=== PATIENT | male | born 1940 | race Caucasian/White ===

== ENCOUNTER 2018-09-13 07:50 | Inpatient (IN) | payer MEDICARE, OTHER ==
[~2018-09-13] VITALS: Ht 167.6 cm; Wt 114.9 kg
[~2018-09-13 07:50] MED LIST: AMIO200T44 PO; ASPI81 PO; ATOR-2 PO; CARV6.2534 PO; CHL25 PO; CLOP75TA3 PO; ISOS30TA6 PO; LEVO25TA9 PO; PARO-37 PO; SLOWK8 PO; SPIR50 PO; TAMS0.4C32 PO
[2018-09-13] MEDS ORDERED: INHALER IH (08:06)
[2018-09-13] MEDS ORDERED: PERTUSS(ACELL),DIPH,TET VAC/PF 0.5 ML VIAL IM ONE (08:30)
[2018-09-13] MEDS ORDERED: BACITRACIN 0.9 GM PACKET OINTMENT TP ONE (08:30)
[2018-09-13] MEDS ORDERED: FUROSEMIDE 40 MG/4 ML VIAL IVP ONE (08:30)
[2018-09-13] MEDS ORDERED: IPRATROPIUM BROMIDE 0.5 MG/2.5 ML NEB SOLUTION NEB ONE (08:30)
[2018-09-13] MEDS ORDERED: ASPIRIN 325 MG TABLET PO ONE (08:30)
[2018-09-13] MEDS ORDERED: CefTRIAXone 1 GM/DEXTROSE 50 ML IV ONE (08:30)
[2018-09-13] MEDS ORDERED: ALBUTEROL SULFATE 2.5 MG/0.5 ML NEB SOLUTION NEB ONE (08:30)
[2018-09-13 08:50] LABS: BASOPHILS % (AUTO) 0.3 % (0.0-2.0); EOSINOPHILS % (AUTO) 1.7 % (1.0-6.0); HEMATOCRIT 48.1 % (41-53); HEMOGLOBIN 15.8 g/dL (13.5-17.5); LYMPHOCYTES # (AUTO) 0.6 K/uL (1.0-4.8); LYMPHOCYTES % (AUTO) 9.6 % (22.0-44.0); MEAN CORPUSCULAR HEMOGLOBIN 32.5 pg (26.0-34.0); MEAN CORPUSCULAR HGB CONC 32.9 G/dL (31.0-37.0); MEAN CORPUSCULAR VOLUME 99 fL (80-100); MONOCYTES % (AUTO) 15.3 % (2.0-9.0); NEUTROPHILS # (AUTO) 4.5 K/uL (1.8-7.7); NEUTROPHILS % (AUTO) 73.1 % (40.0-70.0); PLATELET COUNT (AUTO) 22 K/uL (150-450); RED BLOOD CELL COUNT(AUTO) 4.86 MIL/uL (4.50-5.90); RED CELL DISTRIBUTION WIDTH 12.8 % (11.5-14.5)
[2018-09-13 09:04] LABS: ANION GAP 2 mmol/L (8-16); CALCIUM, TOTAL 9.1 mg/dL (8.8-10.5); CARBON DIOXIDE 35 mmol/L (22-29); CHLORIDE 101 mmol/L (98-107); CREATININE 0.98 mg/dL (0.60-1.30); GLUCOSE,RANDOM 116 mg/dL (70-110); POTASSIUM 3.8 mmol/L (3.5-5.1); SODIUM SERUM 138 mmol/L (136-145); UREA NITROGEN, BLOOD 15 mg/dL (7-18)
[2018-09-13 09:05] LABS: GLOMERULAR FILTR. RATE CALC > 60 mL/min (>60)
[2018-09-13] MEDS: OXYGEN THERAPY IH SCH ×2 (09:05→20:30)
[2018-09-13 09:10] LABS: ALANINE AMINOTRANSFERASE 19 U/L (12-78); ALBUMIN 3.1 g/dL (3.4-5.0); ALKALINE PHOSPHATASE 73 U/L (46-116); ASPARTATE AMINOTRANSFERASE 22 U/L (15-37); BILIRUBIN,TOTAL 0.6 mg/dL (0.1-1.0); TOTAL PROTEIN, SERUM 6.7 g/dL (6.4-8.2)
[2018-09-13 09:12] LABS: LACTIC ACID 0.6 mmol/L (0.4-2.0)
[2018-09-13 09:13] LABS: B-TYPE NATRIURETIC PEPTIDE 103 pg/mL (0-100)
[2018-09-13 09:38] LABS: APPEARANCE,URINE CLEAR (CLEAR); BILIRUBIN,URINE NEGATIVE (NEGATIVE); GLUCOSE, URINE (UA) NEGATIVE (NEGATIVE); KETONES,URINE NEGATIVE (NEGATIVE); LEUKOCYTE ESTERASE ,URINE TRACE (NEGATIVE); NITRATE,URINE NEGATIVE (NEGATIVE); OCCULT BLOOD,URINE TRACE (NEGATIVE); PH,URINE 6.5 (5.0-8.0); PROTEIN,URINE NEGATIVE (NEGATIVE)
[2018-09-13 09:45] LABS: BACTERIA,URINE Rare /HPF (None Seen); SQUAMOUS EPITHELIAL CELL,UR Rare /LPF (None Seen)
[2018-09-13] MEDS ORDERED: ACETAMINOPHEN 325 MG TABLET PO PRN (10:00)
[2018-09-13] MEDS ORDERED: ALBUTEROL SULFATE 2.5 MG/0.5 ML NEB SOLUTION NEB PRN (10:00)
[2018-09-13] MEDS ORDERED: MAGNESIUM HYDROXIDE SUSPENSION 30 ML UDCUP PO PRN (10:00)
[2018-09-13 10:35] LABS: INFLUENZA TYPE A NEGATIVE FOR TYPE A (NEGATIVE); INFLUENZA TYPE B NEGATIVE FOR TYPE B (NEGATIVE)
[2018-09-13 13:45] VITALS: BP 115/51
[2018-09-13] MEDS: IPRATROPIUM BROMIDE 0.5 MG/2.5 ML NEB SOLUTION NEB SCH ×2 (15:00→23:50)
[2018-09-13] MEDS: ALBUTEROL SULFATE 2.5 MG/0.5 ML NEB SOLUTION NEB SCH ×2 (15:00→23:51)
[2018-09-13 15:36] LABS: ABG BASE EXCESS 9.5 mmol/L (-2.0-3.0); ABG CARBOXYHEMOGLOBIN 0.7 % (0.0-1.5); ABG HCO3 31.1 mmol/L (22.0-26.0); ABG METHEMOGLOBIN 0.1 % (0.0-1.5); ABG OXYGEN CONTENT 22.4 mL/dL (15.0-23.0); ABG OXYGEN SATURATION 95.1 % (95.0-98.0); ABG OXYHEMOGLOBIN 94.3 % (94.0-100.0); ABG PCO2 56 mmHg (35-45); ABG PH 7.404 (7.35-7.450); ABG TOTAL HEMOGLOBIN 16.9 G/dL (12.0-18.0); PO2, ARTERIAL BG 73.6 mmHg (75.0-83.0); SOURCE, BLOOD GAS ARTERIAL; TEMPERATURE, FAHRENHEIT, BG 98.6 FAHREN (96.0-98.6)
[2018-09-13 15:37] LABS: O2 DEVICE,BLOOD GAS CANNULA (ROOM AIR); SITE, BLOOD GAS LFT RADIAL
[2018-09-13] MEDS ORDERED: HEPARIN SODIUM,PORCINE 5,000 UNITS/ML VIAL SQ SCH (16:00)
[2018-09-13] MEDS: HEPARIN SODIUM,PORCINE 5,000 UNITS/ML VIAL SQ SCH ×2 (16:22→20:30)
[2018-09-13 20:15] VITALS: BP 120/71
[2018-09-13] MEDS: ATORVASTATIN CALCIUM 20 MG TABLET PO SCH (20:30)
[2018-09-13] MEDS: DOCUSATE SODIUM 100 MG CAPSULE PO SCH (20:30)
[2018-09-13] MEDS: CARVEDILOL 6.25 MG TABLET PO SCH (20:30)
[2018-09-14 00:08] VITALS: BP 111/71
[2018-09-14] MEDS: IPRATROPIUM BROMIDE 0.5 MG/2.5 ML NEB SOLUTION NEB SCH ×6 (02:59→22:42)
[2018-09-14] MEDS: ALBUTEROL SULFATE 2.5 MG/0.5 ML NEB SOLUTION NEB SCH ×6 (02:59→22:42)
[2018-09-14 06:08] VITALS: BP 128/76
[2018-09-14 07:43] LABS: ANION GAP 6 mmol/L (8-16); CALCIUM, TOTAL 9.4 mg/dL (8.8-10.5); CARBON DIOXIDE 32 mmol/L (22-29); CHLORIDE 96 mmol/L (98-107); CREATININE 1.08 mg/dL (0.60-1.30); GLUCOSE,RANDOM 88 mg/dL (70-110); POTASSIUM 3.9 mmol/L (3.5-5.1); SODIUM SERUM 134 mmol/L (136-145); UREA NITROGEN, BLOOD 20 mg/dL (7-18)
[2018-09-14 07:44] LABS: GLOMERULAR FILTR. RATE CALC > 60 mL/min (>60)
[2018-09-14] MEDS: OXYGEN THERAPY IH SCH ×2 (08:14→21:03)
[2018-09-14] MEDS: FUROSEMIDE 20 MG/2 ML VIAL IVP SCH (08:15)
[2018-09-14] MEDS: ASPIRIN 81 MG CHEWABLE TABLET PO SCH ×2 (08:15→08:21)
[2018-09-14] MEDS: CLOPIDOGREL BISULFATE 75 MG TABLET PO SCH ×2 (08:15→08:21)
[2018-09-14] MEDS: DOCUSATE SODIUM 100 MG CAPSULE PO SCH ×2 (08:15→21:03)
[2018-09-14] MEDS: CARVEDILOL 6.25 MG TABLET PO SCH ×2 (08:15→21:03)
[2018-09-14] MEDS: HEPARIN SODIUM,PORCINE 5,000 UNITS/ML VIAL SQ SCH (08:16)
[2018-09-14] MEDS ORDERED: FAMOTIDINE 20 MG TABLET PO SCH (09:00)
[2018-09-14 09:32] LABS: BASOPHILS % (AUTO) 0.2 % (0.0-2.0); EOSINOPHILS % (AUTO) 0.4 % (1.0-6.0); HEMATOCRIT 50.4 % (41-53); HEMOGLOBIN 16.5 g/dL (13.5-17.5); LYMPHOCYTES # (AUTO) 0.8 K/uL (1.0-4.8); MEAN CORPUSCULAR HEMOGLOBIN 32.5 pg (26.0-34.0); MEAN CORPUSCULAR HGB CONC 32.9 G/dL (31.0-37.0); MEAN CORPUSCULAR VOLUME 99 fL (80-100); MONOCYTES # (AUTO) 1.1 K/uL (0.1-1.0); MONOCYTES % (AUTO) 17.8 % (2.0-9.0); NEUTROPHILS # (AUTO) 4.4 K/uL (1.8-7.7); NEUTROPHILS % (AUTO) 68.6 % (40.0-70.0); RED CELL DISTRIBUTION WIDTH 13.1 % (11.5-14.5)
[2018-09-14 09:42] LABS: PLATELET COUNT (AUTO) 15 K/uL (150-450)
[2018-09-14 09:52] VITALS: BP 122/72
[2018-09-14] MEDS: PredniSONE 20 MG TABLET PO SCH (12:19)
[2018-09-14 12:21] VITALS: BP 120/63
[2018-09-14 16:17] VITALS: BP 117/58
[2018-09-14] MEDS ORDERED: BENZOCAINE/MENTHOL LOZENGE PO PRN (17:45)
[2018-09-14] MEDS ORDERED: GuaiFENesin/CODEINE [SUGAR FREE] 200-20MG/10 ML SYRUP UDCUP PO PRN (17:45)
[2018-09-14 20:33] VITALS: BP 119/62
[2018-09-14] MEDS: ATORVASTATIN CALCIUM 20 MG TABLET PO SCH (21:03)
[2018-09-15] VITALS (7 sets, daily range): BP systolic 107–126; BP diastolic 55–66
[2018-09-15] MEDS: BENZONATATE 100 MG CAPSULE PO SCH ×4 (00:10→23:29)
[2018-09-15] MEDS: ALBUTEROL SULFATE 2.5 MG/0.5 ML NEB SOLUTION NEB SCH ×6 (02:52→22:51)
[2018-09-15] MEDS: IPRATROPIUM BROMIDE 0.5 MG/2.5 ML NEB SOLUTION NEB SCH ×6 (02:52→22:51)
[2018-09-15 05:44] LABS: BASOPHILS % (AUTO) 0.1 % (0.0-2.0); EOSINOPHILS % (AUTO) 0 % (1.0-6.0); HEMOGLOBIN 16.4 g/dL (13.5-17.5); LYMPHOCYTES # (AUTO) 0.7 K/uL (1.0-4.8); LYMPHOCYTES % (AUTO) 11.8 % (22.0-44.0); MEAN CORPUSCULAR HEMOGLOBIN 32.8 pg (26.0-34.0); MEAN CORPUSCULAR HGB CONC 33.5 G/dL (31.0-37.0); MEAN CORPUSCULAR VOLUME 98 fL (80-100); MONOCYTES # (AUTO) 0.4 K/uL (0.1-1.0); MONOCYTES % (AUTO) 7.4 % (2.0-9.0); NEUTROPHILS # (AUTO) 4.6 K/uL (1.8-7.7); NEUTROPHILS % (AUTO) 80.7 % (40.0-70.0); RED BLOOD CELL COUNT(AUTO) 5.01 MIL/uL (4.50-5.90); RED CELL DISTRIBUTION WIDTH 12.9 % (11.5-14.5)
[2018-09-15 05:46] LABS: PLATELET COUNT (AUTO) 16 K/uL (150-450)
[2018-09-15 06:37] LABS: ANION GAP 6 mmol/L (8-16); CALCIUM, TOTAL 9.3 mg/dL (8.8-10.5); CARBON DIOXIDE 32 mmol/L (22-29); CHLORIDE 94 mmol/L (98-107); CREATININE 1.13 mg/dL (0.60-1.30); GLUCOSE,RANDOM 138 mg/dL (70-110); POTASSIUM 4.6 mmol/L (3.5-5.1); SODIUM SERUM 132 mmol/L (136-145); UREA NITROGEN, BLOOD 26 mg/dL (7-18)
[2018-09-15 06:38] LABS: GLOMERULAR FILTR. RATE CALC > 60 mL/min (>60)
[2018-09-15] MEDS: FUROSEMIDE 20 MG/2 ML VIAL IVP SCH (08:11)
[2018-09-15] MEDS: CARVEDILOL 6.25 MG TABLET PO SCH ×2 (08:11→20:15)
[2018-09-15] MEDS: PredniSONE 20 MG TABLET PO SCH (08:11)
[2018-09-15] MEDS: DOCUSATE SODIUM 100 MG CAPSULE PO SCH ×2 (08:11→20:15)
[2018-09-15] MEDS: OXYGEN THERAPY IH SCH ×2 (08:21→19:18)
[2018-09-15] MEDS: ATORVASTATIN CALCIUM 20 MG TABLET PO SCH (20:15)
[2018-09-16] MEDS: ALBUTEROL SULFATE 2.5 MG/0.5 ML NEB SOLUTION NEB SCH ×6 (03:07→23:04)
[2018-09-16] MEDS: IPRATROPIUM BROMIDE 0.5 MG/2.5 ML NEB SOLUTION NEB SCH ×6 (03:07→23:04)
[2018-09-16 05:43] VITALS: BP 129/74
[2018-09-16 07:48] VITALS: BP 113/58
[2018-09-16] MEDS ORDERED: DEXTROSE 50%-WATER 25 GM/50 ML SYRINGE IVP PRN (08:15)
[2018-09-16] MEDS: OXYGEN THERAPY IH SCH ×2 (09:11→20:35)
[2018-09-16] MEDS: PredniSONE 20 MG TABLET PO SCH (09:11)
[2018-09-16] MEDS: BENZONATATE 100 MG CAPSULE PO SCH ×2 (09:11→16:48)
[2018-09-16] MEDS: FUROSEMIDE 20 MG/2 ML VIAL IVP SCH (09:11)
[2018-09-16] MEDS: CARVEDILOL 6.25 MG TABLET PO SCH ×2 (09:11→21:00)
[2018-09-16] MEDS: DOCUSATE SODIUM 100 MG CAPSULE PO SCH ×2 (09:11→20:36)
[2018-09-16 09:22] LABS: BASOPHILS % (AUTO) 0.2 % (0.0-2.0); EOSINOPHILS % (AUTO) 0 % (1.0-6.0); HEMATOCRIT 48.9 % (41-53); HEMOGLOBIN 16.1 g/dL (13.5-17.5); LYMPHOCYTES # (AUTO) 1.1 K/uL (1.0-4.8); LYMPHOCYTES % (AUTO) 11.3 % (22.0-44.0); MEAN CORPUSCULAR HEMOGLOBIN 32.1 pg (26.0-34.0); MEAN CORPUSCULAR HGB CONC 32.9 G/dL (31.0-37.0); MEAN CORPUSCULAR VOLUME 98 fL (80-100); MONOCYTES # (AUTO) 0.7 K/uL (0.1-1.0); MONOCYTES % (AUTO) 7.2 % (2.0-9.0); NEUTROPHILS # (AUTO) 8.2 K/uL (1.8-7.7); NEUTROPHILS % (AUTO) 81.3 % (40.0-70.0); PLATELET COUNT (AUTO) 28 K/uL (150-450); RED BLOOD CELL COUNT(AUTO) 5.02 MIL/uL (4.50-5.90); RED CELL DISTRIBUTION WIDTH 12.7 % (11.5-14.5)
[2018-09-16 12:05] VITALS: BP 109/58
[2018-09-16] MEDS: INSULIN LISPRO 100 UNITS/ML SQ PRN ×2 (12:36→20:50)
[2018-09-16 16:35] LABS: GLUCOMETER DEV NAME(LOC) 5S.1; GLUCOSE,POINT OF CARE 149 MG/DL (70-110)
[2018-09-16 17:01] VITALS: BP 121/72
[2018-09-16 19:43] VITALS: BP 114/63
[2018-09-16] MEDS: ATORVASTATIN CALCIUM 20 MG TABLET PO SCH (20:36)
[2018-09-16 23:45] VITALS: BP 135/64
[2018-09-17] MEDS: BENZONATATE 100 MG CAPSULE PO SCH ×3 (00:29→17:23)
[2018-09-17] MEDS: IPRATROPIUM BROMIDE 0.5 MG/2.5 ML NEB SOLUTION NEB SCH ×6 (02:42→23:27)
[2018-09-17] MEDS: ALBUTEROL SULFATE 2.5 MG/0.5 ML NEB SOLUTION NEB SCH ×6 (02:42→23:27)
[2018-09-17 04:59] VITALS: BP 145/74
[2018-09-17 06:09] LABS: BASOPHILS % (AUTO) 0.1 % (0.0-2.0); EOSINOPHILS % (AUTO) 0 % (1.0-6.0); HEMATOCRIT 48.6 % (41-53); HEMOGLOBIN 16.3 g/dL (13.5-17.5); LYMPHOCYTES # (AUTO) 1.1 K/uL (1.0-4.8); LYMPHOCYTES % (AUTO) 10.4 % (22.0-44.0); MEAN CORPUSCULAR HEMOGLOBIN 32.6 pg (26.0-34.0); MEAN CORPUSCULAR HGB CONC 33.4 G/dL (31.0-37.0); MEAN CORPUSCULAR VOLUME 97 fL (80-100); MONOCYTES % (AUTO) 9.5 % (2.0-9.0); NEUTROPHILS # (AUTO) 8.1 K/uL (1.8-7.7); PLATELET COUNT (AUTO) 48 K/uL (150-450); RED BLOOD CELL COUNT(AUTO) 4.99 MIL/uL (4.50-5.90); RED CELL DISTRIBUTION WIDTH 12.7 % (11.5-14.5)
[2018-09-17 06:19] LABS: GLUCOMETER DEV NAME(LOC) 5S.1; GLUCOSE,POINT OF CARE 161 MG/DL (70-110)
[2018-09-17 06:24] LABS: GLUCOMETER DEV NAME(LOC) 5S.1; GLUCOSE,POINT OF CARE 95 MG/DL (70-110)
[2018-09-17 06:38] LABS: ALANINE AMINOTRANSFERASE 21 U/L (12-78); ALBUMIN 3.1 g/dL (3.4-5.0); ALKALINE PHOSPHATASE 62 U/L (46-116); ANION GAP 3 mmol/L (8-16); ASPARTATE AMINOTRANSFERASE 26 U/L (15-37); BILIRUBIN,TOTAL 0.5 mg/dL (0.1-1.0); CALCIUM, TOTAL 9.6 mg/dL (8.8-10.5); CARBON DIOXIDE 36 mmol/L (22-29); CHLORIDE 96 mmol/L (98-107); CREATININE 1.01 mg/dL (0.60-1.30); GLOMERULAR FILTR. RATE CALC > 60 mL/min (>60); GLUCOSE,RANDOM 97 mg/dL (70-110); POTASSIUM 3.9 mmol/L (3.5-5.1); SODIUM SERUM 135 mmol/L (136-145); UREA NITROGEN, BLOOD 29 mg/dL (7-18)
[2018-09-17 06:58] LABS: B-TYPE NATRIURETIC PEPTIDE 30 pg/mL (0-100)
[2018-09-17] MEDS: OXYGEN THERAPY IH SCH ×2 (08:00→18:54)
[2018-09-17 08:07] VITALS: BP 112/58
[2018-09-17] MEDS: FUROSEMIDE 20 MG/2 ML VIAL IVP SCH (08:49)
[2018-09-17] MEDS: PredniSONE 20 MG TABLET PO SCH (08:49)
[2018-09-17] MEDS: DOCUSATE SODIUM 100 MG CAPSULE PO SCH ×2 (08:50→20:14)
[2018-09-17] MEDS: CARVEDILOL 6.25 MG TABLET PO SCH ×2 (09:00→20:14)
[2018-09-17 11:22] VITALS: BP 117/56
[2018-09-17 11:44] LABS: GLUCOMETER DEV NAME(LOC) 5N.1; GLUCOSE,POINT OF CARE 131 MG/DL (70-110)
[2018-09-17 12:44] LABS: GLUCOMETER DEV NAME(LOC) 5N.1; GLUCOSE,POINT OF CARE 132 MG/DL (70-110)
[2018-09-17 15:24] VITALS: BP 114/64
[2018-09-17 20:00] VITALS: BP 123/56
[2018-09-17] MEDS: ATORVASTATIN CALCIUM 20 MG TABLET PO SCH (20:14)
[2018-09-17] MEDS: INSULIN LISPRO 100 UNITS/ML SQ PRN (21:10)
[2018-09-18 00:05] VITALS: BP 127/65
[2018-09-18] MEDS: BENZONATATE 100 MG CAPSULE PO SCH ×2 (00:13→08:39)
[2018-09-18] MEDS: ALBUTEROL SULFATE 2.5 MG/0.5 ML NEB SOLUTION NEB SCH ×3 (03:28→11:13)
[2018-09-18] MEDS: IPRATROPIUM BROMIDE 0.5 MG/2.5 ML NEB SOLUTION NEB SCH ×3 (03:28→11:13)
[2018-09-18 04:39] VITALS: BP 133/77
[2018-09-18 05:14] LABS: GLUCOMETER DEV NAME(LOC) 5S.1; GLUCOSE,POINT OF CARE 191 MG/DL (70-110)
[2018-09-18 05:14] LABS: GLUCOMETER DEV NAME(LOC) 5S.1; GLUCOSE,POINT OF CARE 125 MG/DL (70-110)
[2018-09-18 05:55] LABS: BASOPHILS % (AUTO) 0.1 % (0.0-2.0); EOSINOPHILS % (AUTO) 0 % (1.0-6.0); HEMATOCRIT 49.1 % (41-53); HEMOGLOBIN 16.2 g/dL (13.5-17.5); LYMPHOCYTES # (AUTO) 1.1 K/uL (1.0-4.8); LYMPHOCYTES % (AUTO) 10.8 % (22.0-44.0); MEAN CORPUSCULAR HEMOGLOBIN 32.3 pg (26.0-34.0); MEAN CORPUSCULAR HGB CONC 32.9 G/dL (31.0-37.0); MEAN CORPUSCULAR VOLUME 98 fL (80-100); MONOCYTES # (AUTO) 1.1 K/uL (0.1-1.0); MONOCYTES % (AUTO) 10.7 % (2.0-9.0); NEUTROPHILS % (AUTO) 78.4 % (40.0-70.0); RED CELL DISTRIBUTION WIDTH 12.9 % (11.5-14.5)
[2018-09-18 06:03] LABS: ANION GAP 3 mmol/L (8-16); CALCIUM, TOTAL 9.7 mg/dL (8.8-10.5); CARBON DIOXIDE 36 mmol/L (22-29); CHLORIDE 97 mmol/L (98-107); CREATININE 1.04 mg/dL (0.60-1.30); GLUCOSE,RANDOM 93 mg/dL (70-110); POTASSIUM 3.8 mmol/L (3.5-5.1); SODIUM SERUM 136 mmol/L (136-145); UREA NITROGEN, BLOOD 27 mg/dL (7-18)
[2018-09-18 06:10] LABS: GLOMERULAR FILTR. RATE CALC > 60 mL/min (>60)
[2018-09-18 07:22] LABS: PLATELET COUNT (AUTO) 70 K/uL (150-450)
[2018-09-18 08:06] VITALS: BP 139/69
[2018-09-18] MEDS: PredniSONE 20 MG TABLET PO SCH (08:39)
[2018-09-18] MEDS: DOCUSATE SODIUM 100 MG CAPSULE PO SCH (08:39)
[2018-09-18] MEDS: CARVEDILOL 6.25 MG TABLET PO SCH (09:00)
[2018-09-18] MEDS ORDERED: BUMETANIDE 0.25 MG/ML 4 ML VIAL IVP SCH (09:00)
[2018-09-18 10:09] LABS: GLUCOMETER DEV NAME(LOC) 5N.1; GLUCOSE,POINT OF CARE 84 MG/DL (70-110)
[2018-09-18 11:55] VITALS: BP 110/56
[2018-09-18] MEDS ORDERED: PRED5TAB PO ×2 (13:11→13:14)
[2018-09-18] MEDS ORDERED: PRED10TA3 PO ×2 (13:12→13:14)
[2018-09-18] MEDS ORDERED: PRED20TA3 PO (13:13)
[2018-09-18] MEDS ORDERED: BUME1TAB7 PO (13:16)
[2018-09-18] MEDS ORDERED: ALBU0.212 IH (13:17)
[2018-09-18] MEDS ORDERED: ATOR40TA28 PO (13:17)
[2018-09-19 05:44] LABS: GLUCOMETER DEV NAME(LOC) 5S.1; GLUCOSE,POINT OF CARE 112 MG/DL (70-110)
== END 2018-09-18 14:35 | disposition home or self-care (01) | DRG 291 ==
LOC: EMS 07:52 → 5S 11:43
PROVIDERS: ADMIT Internal Medicine; ATTEND Internal Medicine
PROC: 3E0234Z Introduction of Serum, Toxoid and Vaccine into Muscle, Percutaneous Approach (ICD-10-PCS; principal; 2018-09-13)
DX: I11.0 Hypertensive heart disease with heart failure (principal); J96.01 Acute respiratory failure with hypoxia; I50.21 Acute systolic (congestive) heart failure; L03.116 Cellulitis of left lower limb; J44.1 Chronic obstructive pulmonary disease with (acute) exacerbation; D69.3 Immune thrombocytopenic purpura; E44.0 Moderate protein-calorie malnutrition; E66.2 Morbid (severe) obesity with alveolar hypoventilation; Z68.41 Body mass index [BMI] 40.0-44.9, adult; E78.00 Pure hypercholesterolemia, unspecified; N40.0 Benign prostatic hyperplasia without lower urinary tract symptoms; E78.5 Hyperlipidemia, unspecified; I25.10 Atherosclerotic heart disease of native coronary artery without angina pectoris; Z95.1 Presence of aortocoronary bypass graft; Z95.5 Presence of coronary angioplasty implant and graft; Z23 Encounter for immunization
CPT/HCPCS: 36600; 71250; 82805; 83605; 87040; 87804; 90715; 93005; 93306; 93970; 94640; 99291; G0378; J0696; J1644; J1940; J3490

== ENCOUNTER 2019-08-01 12:50 | Emergency (ER) | payer MEDICARE, OTHER ==
[~2019-08-01] VITALS: Ht 167.6 cm; Wt 86.4 kg
[~2019-08-01 12:50] MED LIST changes: +ALBU0.212 IH; -AMIO200T44 PO; -ASPI81 PO; -ATOR-2 PO; +ATOR40TA28 PO; +BUME1TAB7 PO; -CHL25 PO; -CLOP75TA3 PO; +INHALER IH; -ISOS30TA6 PO; -PARO-37 PO; +PRED10TA3 PO; +PRED20TA3 PO; +PRED5TAB PO; -SLOWK8 PO; -SPIR50 PO; +TAMS-13 PO; -TAMS0.4C32 PO
[2019-08-01] MEDS ORDERED: BACITRACIN 0.9 GM PACKET OINTMENT TP ONE (13:30)
[2019-08-01] MEDS ORDERED: ACETAMINOPHEN 325 MG TABLET PO ONE (13:30)
[2019-08-01] MEDS ORDERED: LIDOCAINE 1%/EPI 1:200,000/PF 30 ML VIAL INJ ONE (13:30)
[2019-08-01 14:15] VITALS: BP 112/59
== END 2019-08-01 14:47 | disposition home or self-care (01) ==
LOC: EMS 13:02
DX: S81.812A Laceration without foreign body, left lower leg, initial encounter (principal); I11.0 Hypertensive heart disease with heart failure; I50.9 Heart failure, unspecified; E78.00 Pure hypercholesterolemia, unspecified; W45.8XXA Other foreign body or object entering through skin, initial encounter; Y93.01 Activity, walking, marching and hiking; Y92.89 Other specified places as the place of occurrence of the external cause; Y99.8 Other external cause status
CPT/HCPCS: 12002; 99283; J3490

== ENCOUNTER 2019-08-06 12:27 | Emergency (ER) | payer MEDICARE, OTHER ==
[~2019-08-06] VITALS: Ht 167.6 cm; Wt 89.1 kg
[2019-08-06] MEDS ORDERED: LIDOCAINE/PF 1% 2 ML VIAL IM ONE (13:30)
[2019-08-06] MEDS ORDERED: CefTRIAXone SODIUM 1 GM/VIAL IM ONE (13:30)
[2019-08-06 13:39] VITALS: BP 120/82
== END 2019-08-06 13:39 | disposition home or self-care (01) ==
LOC: EMS 12:29
DX: L08.9 Local infection of the skin and subcutaneous tissue, unspecified (principal); I11.0 Hypertensive heart disease with heart failure; I50.9 Heart failure, unspecified; E78.00 Pure hypercholesterolemia, unspecified
CPT/HCPCS: 96372; 99283; J0696; J3490

== ENCOUNTER 2019-08-13 09:19 | Emergency (ER) | payer MEDICARE, OTHER ==
[~2019-08-13] VITALS: Ht 172.7 cm; Wt 72.7 kg
[2019-08-13 09:21] VITALS: BP 104/52
== END 2019-08-13 10:11 | disposition left against medical advice (07) ==
LOC: EMS 09:26
DX: Z48.02 Encounter for removal of sutures (principal); Z53.21 Procedure and treatment not carried out due to patient leaving prior to being seen by health care provider

== ENCOUNTER 2019-08-14 17:20 | Emergency (ER) | payer MEDICARE, OTHER ==
[~2019-08-14] VITALS: Ht 165.1 cm; Wt 88.6 kg
[2019-08-14 19:01] VITALS: BP 105/66
== END 2019-08-14 19:23 | disposition home or self-care (01) ==
LOC: EMS 17:20
DX: L03.116 Cellulitis of left lower limb (principal); I11.0 Hypertensive heart disease with heart failure; I50.9 Heart failure, unspecified; E78.00 Pure hypercholesterolemia, unspecified; Z48.02 Encounter for removal of sutures

== ENCOUNTER 2019-08-30 12:48 | Emergency (ER) | payer MEDICARE, OTHER ==
[~2019-08-30] VITALS: Ht 167.6 cm; Wt 87.7 kg
[~2019-08-30 12:48] MED LIST changes: -PRED10TA3 PO; -PRED20TA3 PO; -PRED5TAB PO
[2019-08-30] MEDS ORDERED: MUPIROCIN CALCIUM 2% 22 GM OINTMENT TP ONE (14:15)
[2019-08-30 15:42] LABS: BASOPHILS % (AUTO) 0.6 % (0.0-2.0); EOSINOPHILS % (AUTO) 4.7 % (1.0-6.0); HEMATOCRIT 46.4 % (41-53); HEMOGLOBIN 15.7 g/dL (13.5-17.5); LYMPHOCYTES # (AUTO) 1.4 K/uL (1.0-4.8); LYMPHOCYTES % (AUTO) 16.9 % (22.0-44.0); MEAN CORPUSCULAR HEMOGLOBIN 31.6 pg (26.0-34.0); MEAN CORPUSCULAR HGB CONC 33.9 G/dL (31.0-37.0); MEAN CORPUSCULAR VOLUME 93 fL (80-100); MONOCYTES # (AUTO) 1.1 K/uL (0.1-1.0); MONOCYTES % (AUTO) 12.9 % (2.0-9.0); NEUTROPHILS # (AUTO) 5.5 K/uL (1.8-7.7); NEUTROPHILS % (AUTO) 64.9 % (40.0-70.0); RED BLOOD CELL COUNT(AUTO) 4.98 MIL/uL (4.50-5.90); RED CELL DISTRIBUTION WIDTH 14.3 % (11.5-14.5)
[2019-08-30 15:43] LABS: ANION GAP 5 mmol/L (8-16); CALCIUM, TOTAL 9.2 mg/dL (8.8-10.5); CARBON DIOXIDE 33 mmol/L (22-29); CHLORIDE 104 mmol/L (98-107); GLUCOSE,RANDOM 92 mg/dL (70-110); POTASSIUM 4.9 mmol/L (3.5-5.1); SODIUM SERUM 142 mmol/L (136-145); UREA NITROGEN, BLOOD 22 mg/dL (7-18)
[2019-08-30 15:46] LABS: GLOMERULAR FILTR. RATE CALC > 60 mL/min (>60)
[2019-08-30 15:51] LABS: ALANINE AMINOTRANSFERASE 24 U/L (12-78); ALBUMIN 3.2 g/dL (3.4-5.0); ALKALINE PHOSPHATASE 56 U/L (46-116); ASPARTATE AMINOTRANSFERASE 21 U/L (15-37); BILIRUBIN,TOTAL 0.4 mg/dL (0.1-1.0); TOTAL PROTEIN, SERUM 6.7 g/dL (6.4-8.2)
[2019-08-30 16:10] LABS: PLATELET COUNT (AUTO) 87 K/uL (150-450)
[2019-08-30 16:32] VITALS: BP 112/68
== END 2019-08-30 16:35 | disposition home or self-care (01) ==
LOC: EMS 12:48
DX: M25.572 Pain in left ankle and joints of left foot (principal); R60.0 Localized edema; I11.0 Hypertensive heart disease with heart failure; I50.9 Heart failure, unspecified; E78.00 Pure hypercholesterolemia, unspecified
CPT/HCPCS: 87070; 87205

== ENCOUNTER 2020-01-23 09:59 | Emergency (ER) | payer MEDICARE, OTHER ==
[~2020-01-23] VITALS: Ht 167.6 cm; Wt 86.8 kg
[2020-01-23] MEDS ORDERED: PIPERACILLIN/TAZO 3.375 GM/D5W 50 ML IV ONE (12:15)
[2020-01-23] MEDS ORDERED: VANCOMYCIN HCL 1 GM/D5% WATER 200 ML IV ONE (12:15)
[2020-01-23] MEDS ORDERED: 0.9% SODIUM CHLORIDE 10 ML SYRINGE IVP PRN (12:15)
[2020-01-23 12:51] LABS: BASOPHILS % (AUTO) 0.8 % (0.0-2.0); EOSINOPHILS % (AUTO) 4.6 % (1.0-6.0); HEMATOCRIT 47.6 % (41-53); HEMOGLOBIN 16.6 g/dL (13.5-17.5); LYMPHOCYTES # (AUTO) 1.4 K/uL (1.0-4.8); MEAN CORPUSCULAR HEMOGLOBIN 32.7 pg (26.0-34.0); MEAN CORPUSCULAR HGB CONC 34.8 G/dL (31.0-37.0); MEAN CORPUSCULAR VOLUME 94 fL (80-100); MONOCYTES % (AUTO) 9.3 % (2.0-9.0); NEUTROPHILS # (AUTO) 7.3 K/uL (1.8-7.7); NEUTROPHILS % (AUTO) 71.3 % (40.0-70.0); PLATELET COUNT (AUTO) 105 K/uL (150-450); RED BLOOD CELL COUNT(AUTO) 5.06 MIL/uL (4.50-5.90); RED CELL DISTRIBUTION WIDTH 13.9 % (11.5-14.5)
[2020-01-23 13:08] LABS: ANION GAP 6 mmol/L (8-16); CALCIUM, TOTAL 9.3 mg/dL (8.8-10.5); CARBON DIOXIDE 29 mmol/L (22-29); CHLORIDE 103 mmol/L (98-107); CREATININE 0.73 mg/dL (0.60-1.30); GLUCOSE,RANDOM 96 mg/dL (70-110); POTASSIUM 4.5 mmol/L (3.5-5.1); SODIUM SERUM 138 mmol/L (136-145); UREA NITROGEN, BLOOD 20 mg/dL (7-18)
[2020-01-23 13:15] LABS: ALANINE AMINOTRANSFERASE 26 U/L (12-78); ALBUMIN 3.4 g/dL (3.4-5.0); ALKALINE PHOSPHATASE 63 U/L (46-116); ASPARTATE AMINOTRANSFERASE 22 U/L (15-37); BILIRUBIN,TOTAL 0.5 mg/dL (0.1-1.0); TOTAL PROTEIN, SERUM 7.2 g/dL (6.4-8.2)
[2020-01-23 13:16] LABS: GLOMERULAR FILTR. RATE CALC > 60 mL/min (>60)
[2020-01-23 13:17] LABS: LACTIC ACID 0.8 mmol/L (0.4-2.0)
[2020-01-23 15:51] VITALS: BP 112/53
== END 2020-01-23 16:32 | disposition home or self-care (01) ==
LOC: EMS 10:01
DX: L03.113 Cellulitis of right upper limb (principal); I11.0 Hypertensive heart disease with heart failure; I50.9 Heart failure, unspecified
CPT/HCPCS: 36415; 80053; 83605; 85025; 87040; 96365; 96367; 99285; J2543; J3370

== ENCOUNTER 2021-10-06 15:04 | Emergency (ER) | payer MEDICARE, OTHER ==
[~2021-10-06] VITALS: Ht 165.1 cm; Wt 81.8 kg
[~2021-10-06 15:04] MED LIST changes: -CARV6.2534 PO; +CEPH-582 PO; +CLIN300C58 PO; -INHALER IH
[2021-10-06] MEDS ORDERED: SPIR-37 PO (15:19)
[2021-10-06] MEDS ORDERED: ELTR25TA PO (15:19)
[2021-10-06] MEDS ORDERED: OMEG-136 PO (15:19)
[2021-10-06] MEDS ORDERED: AMIO200T68 PO (15:19)
[2021-10-06 15:22] VITALS: BP 119/64
== END 2021-10-06 16:58 | disposition home or self-care (01) ==
LOC: EMS 15:04
DX: R60.0 Localized edema (principal); I11.0 Hypertensive heart disease with heart failure; I50.9 Heart failure, unspecified; E78.00 Pure hypercholesterolemia, unspecified; N40.0 Benign prostatic hyperplasia without lower urinary tract symptoms; Z98.890 Other specified postprocedural states; Z88.1 Allergy status to other antibiotic agents
CPT/HCPCS: 93971; 99284; Z7502